=== PATIENT | male | born 1995 | race African-American/Black ===

== ENCOUNTER 2020-07-01 08:21 | Emergency (ER) | payer OTHER ==
[~2020-07-01] VITALS: Ht 167.6 cm; Wt 83.6 kg
--- NOTE | 2020-07-01 09:08 | REP ---
INDICATION: chest tightness. COMPARISON: No comparison chest x-ray. TECHNIQUE: Two views.. FINDINGS: The lungs are well inflated and free of infiltrate. The pleural angles are sharp. The heart size is normal. Pulmonary vasculature is not increased. No significant bony abnormality is seen. IMPRESSION: Negative chest x-ray. <Electronically signed by Eugenio Steel > 07/01/20 0904
[2020-07-01 11:59] VITALS: O2SAT 98
[2020-07-01] MEDS ORDERED: LORazepam 0.5 MG TAB PO STA (12:39)
[2020-07-01 12:40] LABS: BASO % 0.2 % (0.0-1.0); EOS % 0.1 % (0.0-3.0); HEMATOCRIT 46.7 % (42.0-52.0); HEMOGLOBIN 15.4 g/dl (13.5-17.5); LYMPH # 1.7 10^3/uL (1.5-5.0); LYMPH % 17.3 % (24.0-44.0); MEAN CORPUSCULAR HEMOGLOBIN 28.8 pg (27.0-33.0); MEAN CORPUSCULAR VOLUME 87.5 fl (80.0-96.0); MONO # 0.7 10^3/uL (0.0-0.8); MONO % 6.6 % (2.0-8.0); NEUTROPHILS # 7.4 10^3/uL (1.5-8.5); NEUTROPHILS % 75.5 % (36.0-66.0); PLATELET COUNT, AUTOMATED 285 10^3/uL (150-450); RED BLOOD COUNT 5.34 10^6/uL (4.30-6.10); WHITE BLOOD COUNT 9.8 10^3/uL (4.0-10.0)
[2020-07-01 13:06] LABS: ALBUMIN 4.5 GM/DL (3.2-5.2); ALT/SGPT 30 U/L (12-78); BILIRUBIN,DIRECT 0.2 MG/DL (0.0-0.2); BILIRUBIN,TOTAL 0.7 MG/DL (0.2-1.0); BLOOD UREA NITROGEN 15 MG/DL (7-18); CALCIUM LEVEL 10.1 MG/DL (8.5-10.1); CARBON DIOXIDE LEVEL 29 MEQ/L (21-32); CHLORIDE LEVEL 105 MEQ/L (98-107); CK-MB VALUE MASS < 1.0 NG/ML (<3.6); CPK CREATINE PHOSPHOKINASE 499 U/L (39-308); CREATININE FOR GFR 1.07 MG/DL (0.70-1.30); GLOMERULAR FILTRATION RATE > 60.0 (>60); GLUCOSE, FASTING 79 MG/DL (70-100); POTASSIUM SERUM 4.4 MEQ/L (3.5-5.1); SODIUM LEVEL 138 MEQ/L (136-145); TOTAL PROTEIN 8.2 GM/DL (6.4-8.2); TROPONIN I < 0.02 NG/ML (< 0.10)
[2020-07-01] MEDS ORDERED: PROAAER10 INH (13:21)
[2020-07-01 13:32] VITALS: BP 142/68
--- NOTE | 2020-07-01 18:50 | ECGEPIP ---
[facility] - ED Test Date: 2020-07-01 Pat Name: LISSETT SCHWARZ Department: Room: - Gender: Male Outpatient Coding Specialist: ANISH : 1995 Requested By: JOSE M Huynh PA-C Order Number: [id number] Reading MD: Stevie Carballo Measurements Intervals [place] Rate: 50 P: 47 [place]: 170 QRS: 18 QRSD: 94 T: 26 QT: 394 QTc: 359 Interpretive Statements Sinus bradycardia POOR R WAVE PROGRESSION Early repolarization NO PRIORS FOR COMPARISON Electronically Signed on 07-01-2020 18:49:59 EDT by Stevie Carballo
== END 2020-07-01 13:33 | disposition home or self-care (01) ==
LOC: M ED 08:21
DX: F43.0 Acute stress reaction (principal); R07.1 Chest pain on breathing; R94.31 Abnormal electrocardiogram [ECG] [EKG]